=== PATIENT | male | born 1945 | race Caucasian/White ===

== ENCOUNTER 2016-11-10 08:10 | Day surgery (SDC) | payer MEDICARE ==
[~2016-11-10] VITALS: Ht 185.4 cm; Wt 122.5 kg
[~2016-11-10 08:10] MED LIST: ASPI-973 PO; ATRV10T PO; CHOL200047 PO; CLOP75TA3 PO; LOSA50TA37 PO; METO25TA99 PO; PANT40TA3 PO; SALM1CAP4 PO; Sodium Chloride LOK Flush 10 mL Syringe IV PRN; VIAG25T PO; WARF5TAB PO; WARF5TAB7 PO; fentaNYL-PF 50 mCg/mL 2 mL Inj IVPUSH PRN
[2016-11-10 08:38] VITALS: BP 118/66; PULSE 54; RESP 16; O2SAT 97
[2016-11-10] MEDS: 0.9% Sodium Chloride 1,000 ML IV SCH ×2 (08:54→09:04)
[2016-11-10 09:22] VITALS: BP 101/64; PULSE 51; RESP 16; O2SAT 99
[2016-11-10 09:32] VITALS: BP 101/62; PULSE 50; RESP 16; O2SAT 98
[2016-11-10 09:42] VITALS: BP 112/65; PULSE 79; RESP 16; O2SAT 99
--- NOTE | 2016-11-10 10:16 | ENDO ---
[address] [address] ENDOSCOPY PROCEDURE PATIENT: AGUILAR DUDLEY : 1945 MR#: [id number] ADMIT: 11/10/2016 JOB ID: [id number] DATE: 11/10/2016 PREOPERATIVE DIAGNOSIS: Colorectal cancer screening. POSTOPERATIVE DIAGNOSIS(ES): 1. Possible cecal polyp. 2. Minimal sigmoid diverticulosis. OPERATION: Colonoscopy to cecum with cold forceps biopsy. SURGEON: Kenrick Sanz M.D. INDICATIONS: The patient is a 71-year-old man who is here for colorectal cancer screening. He is on warfarin because of a past history of atrial fibrillation and atrial flutter. His warfarin was held. After discussing options with the patient, and getting informed consent, and explaining potential complications, he agreed to proceed. FINDINGS: He had a good prep. The scope was advanced to the cecum. It was withdrawn over 14 minutes and 15 seconds. In the cecum there is a possible small polyp. I cleared some fecal debris and it may have been a suction artifact but I biopsied it. I saw no other definite polyps. He had minimal sigmoid diverticulosis. Retroflexed views of the rectum were normal. DESCRIPTION OF PROCEDURE: The procedure and sedation plan was discussed with the patient and nursing staff. A procedural time-out was held. He received 6 mg of Versed and 125 mcg of fentanyl. The Olympus PCF H 180 AL video colonoscope was passed transanally, advanced to the cecum, withdrawn over 14 minutes and 15 seconds with results as stated above. The area in question in the cecum was biopsied. As stated above, it may have been suction artifact. No other biopsies were taken. IMPRESSION: Possible small cecal polyp and minimal sigmoid diverticulosis. PLAN: He will be allowed to start his warfarin today. We will call him with results. If his biopsy shows adenomatous tissue, he will need a colonoscopy in five years. If it does not, he will need a colonoscopy in 10 years.
--- NOTE | 2016-11-11 10:35 | PATH ---
SURGICAL PATHOLOGY Attending Physician:Reza Dewey CASE STATUS: Signed Out PATIENT NAME: AGUILAR DUDLEY PID: [id number] : 1945 DATE COLLECTED:11/10/2016 16:17 SPECIMEN: Colon, Biopsy CLINICAL HISTORY: 1.CECAL POLYP FINAL DIAGNOSIS: 1.CECAL POLYP: TUBULAR ADENOMA. ICD10 D12.0 GROSS DESCRIPTION: The specimen is received in one formalin filled container labeled with the patient's name, sublabeled "cecal polyp" and consists of a 0.3 x 0.3 x 0.2 CM portion of tissue which is entirely submitted in one cassette. 11/10/2016 DAC MICRO DESCRIPTION: See diagnosis. ICD-9 CODES: CPT CODES: 1: 73360 Electronically Signed Out Kyle Sparks MD [facility] [address], [place] [address] Technical component performed at [facility], [address] [place] [address] Ave[address], [place], [address]
== END 2016-11-10 23:59 | disposition home or self-care (01) ==
LOC: END 08:10
PROVIDERS: ATTEND Surgery
DX: Z12.11 Encounter for screening for malignant neoplasm of colon (principal); D12.0 Benign neoplasm of cecum; K57.30 Diverticulosis of large intestine without perforation or abscess without bleeding; I25.10 Atherosclerotic heart disease of native coronary artery without angina pectoris; I49.5 Sick sinus syndrome; I48.0 Paroxysmal atrial fibrillation; I47.2 Ventricular tachycardia; G47.33 Obstructive sleep apnea (adult) (pediatric); M17.0 Bilateral primary osteoarthritis of knee; J30.2 Other seasonal allergic rhinitis; Z79.82 Long term (current) use of aspirin; Z79.01 Long term (current) use of anticoagulants; Z95.5 Presence of coronary angioplasty implant and graft
CPT/HCPCS: 45380; 99153; G0500; J7030